=== PATIENT | male | born 1950 | race Caucasian/White ===

== ENCOUNTER → 2020-10-01 | Outpatient (CLI) | payer MEDICARE, BC | LOC: COL.RAD 08:14 | DX: Z13.6 Encounter for screening for cardiovascular disorders (principal); Z87.891 Personal history of nicotine dependence ==

== ENCOUNTER 2021-09-06 06:00 | Day surgery (SDC) | payer MEDICARE, BC ==
[~2021-09-06] VITALS: Ht 167.6 cm; Wt 68.6 kg
[2021-09-06] MEDS ORDERED: FLONASE NASAL S16 GM NS (06:20)
[2021-09-06] MEDS ORDERED: LIPITOR 40MG TA40 MG PO (06:20)
[2021-09-06] MEDS ORDERED: ACIPHEX20 MG PO (06:21)
[2021-09-06] MEDS ORDERED: ZYRTEC 10MG10 MG PO (06:21)
[2021-09-06] MEDS ORDERED: CLARITIN 1010 MG/TAB PO (06:22)
[2021-09-06] MEDS ORDERED: MELATONIN5 M1 PO (06:22)
[2021-09-06 06:30] VITALS: BP 156/88; PULSE 75; TEMP 97.5
[2021-09-06 09:50] VITALS: BP 139/75; PULSE 67; TEMP 97.3
--- NOTE | 2021-09-06 09:50 | NUR ---
PATIENT ARRIVES TO ROOM 8 VIA CART. VITAL SIGNS WNL. AT BEDSIDE. WILL CONTINUE TO MONITOR. HE DOESN'T WANT ANYTHING TO EAT OR DRINK AT THIS TIME.
[2021-09-06 10:05] VITALS: BP 152/82; PULSE 64
--- NOTE | 2021-09-06 10:05 | NUR ---
VITAL SIGNS WNL. PATIENT RATES PAIN 5/10. REQUESTS ONE NORCO. SCANNED AND GIVEN. WILL CONTINUE TO MONITOR.
[2021-09-06 10:20] VITALS: BP 153/77; PULSE 70
--- NOTE | 2021-09-06 10:20 | NUR ---
PATIENT IS AWAKE AND ALERT AND READY FOR DISCHARGE. FINAL SET OF VITAL SIGNS ARE WNL. DISCHARGE INSTRUCTIONS REVIEWED WITH PATIENT AND . IV REMOVED. WILL DISCHARGE ONCE DISCHARGE ORDER IS PUT IN.
== END 2021-09-06 11:54 | disposition home or self-care (01) ==
LOC: SDCO 06:00
DX: S83.281A Other tear of lateral meniscus, current injury, right knee, initial encounter (principal); S83.241A Other tear of medial meniscus, current injury, right knee, initial encounter
CPT/HCPCS: J0690; J1100; J1885; J2405; J2704; J3010; J7120

== ENCOUNTER → 2023-07-06 | Outpatient (CLI) | payer MEDICARE, BC ==
[~2023-07-06] MED LIST: ACIPHEX20 MG PO; CLARITIN 1010 MG/TAB PO; FLONASE NASAL S16 GM NS; Iohexol 300 - 100 ML VIAL IV ONE; LIPITOR 40MG TA40 MG PO; MELATONIN5 M1 PO; NS 100 ML IV SCH; ZYRTEC 10MG10 MG PO
== END ==
LOC: COL.RAD 08:12
DX: R91.1 Solitary pulmonary nodule (principal); R07.81 Pleurodynia
CPT/HCPCS: Q9967

== ENCOUNTER → 2024-01-04 | Outpatient (CLI) | payer MEDICARE, BC ==
[~2024-01-04] MED LIST changes: -Iohexol 300 - 100 ML VIAL IV ONE; -NS 100 ML IV SCH
== END ==
LOC: COL.RAD 13:43
DX: J84.10 Pulmonary fibrosis, unspecified (principal); R91.8 Other nonspecific abnormal finding of lung field